=== PATIENT | male | born 1985 | race Caucasian/White ===

== ENCOUNTER 2024-08-01 15:55 | Emergency (ER) | payer OTHER ==
[~2024-08-01] VITALS: Ht 170.2 cm; Wt 69.6 kg
[2024-08-01 15:59] VITALS: BP 158/108; PULSE 80; RESP 17; TEMP 98.1; O2SAT 99
[2024-08-01] MEDS: LIDOCAINE MPF 1% 10 MG/ML VIAL INJ ONE ×2 (16:27→17:00)
[2024-08-01] MEDS: MORPHINE SULFATE 4 MG/ML SYR IM ONE (16:29)
[2024-08-01] MEDS ORDERED: ACET500T99 PO (17:41)
[2024-08-01] MEDS ORDERED: CEPH-588 PO (17:41)
[2024-08-01] MEDS ORDERED: IBUP-2213 PO (17:41)
== END 2024-08-01 17:49 | disposition home or self-care (01) ==
LOC: MED 15:55
DX: S62.631A Displaced fracture of distal phalanx of left index finger, initial encounter for closed fracture (principal); S61.211A Laceration without foreign body of left index finger without damage to nail, initial encounter; Z98.890 Other specified postprocedural states; Z79.899 Other long term (current) drug therapy; W23.0XXA Caught, crushed, jammed, or pinched between moving objects, initial encounter; Y93.89 Activity, other specified; Y92.89 Other specified places as the place of occurrence of the external cause; Y99.8 Other external cause status
CPT/HCPCS: 12002; 29130; 73130; 96372; 99283; J2001; J2270